=== PATIENT | female | born 1985 | race African-American/Black ===

== ENCOUNTER 2019-09-17 07:29 | Emergency (ER) | payer MEDICARE ==
[~2019-09-17] VITALS: Ht 177.8 cm; Wt 85.9 kg
[2019-09-17 08:05] VITALS: BP 123/73
== END 2019-09-17 09:06 | disposition home or self-care (01) ==
LOC: EMS 07:33 → EDBD 07:33 → EMS 09:06
DX: R46.89 Other symptoms and signs involving appearance and behavior (principal)
CPT/HCPCS: 99283; Z7502